=== PATIENT | male | born 1960 | race Two or more races ===

== ENCOUNTER 2016-12-19 06:34 | Day surgery (SDC) | payer OTHER ==
--- NOTE | 2016-12-16 19:54 | HP ---
HISTORY AND PHYSICAL: DATE OF ADMISSION/SURGERY: 12/19/16 The patient is scheduled for surgery on 12/19/16. HISTORY OF PRESENT ILLNESS: The patient was referred to Dr. Mars back in June 2016 by his primary physician, Dr. Chalo Abernathy, for the evaluation of possible thrombophlebitis of the left leg. The patient is a 56-year-old gentleman who has had a history of recurrent superficial thrombophlebitis over the past several years. He originally is from [facility] and was diagnosed there and over the years had recurrent episodes of thrombophlebitis of the left leg, had previously underwent an ultrasound of the left leg and had been on heparin for the treatment of thrombophlebitis. He denies any family history of vein problems, thrombophlebitis, DVT, or pulmonary embolism. He denies any prior history of any trauma to the lower leg. When he presented in June, he gives a history of previously being on heparin on episodes when he has had thrombophlebitis and he was currently on aspirin, but was having GI upset associated with this at the time of his visit on 07/24/16. Other past medical history is significant for hypertension. At the time of his evaluation, he was found to have thrombophlebitis of the left leg. Duplex scan revealed clot throughout the greater saphenous vein. Over the fall, this left leg was treated with Lovenox and monitored with ultrasounds by Dr. Mars. On September 25, the greater saphenous vein on the left leg was found to be clear of clots and he was changed over from Lovenox to Plavix 75 mg a day. Also, in part of his workup, he was found to have heterozygous factor V Leiden which was positive and this was reported to the patient as well. When doing his Duplex scan, the right leg was scanned as well. This revealed the deep system to be normal on the right leg. He had reflux disease involving the right greater saphenous vein. The patient has edema of both lower legs. He has some hyperpigmentation noted on the left leg, lower extremity, the posterior aspect of the calf. This area measured 9 x 5 cm in size. The acute redness that previously had been present in the left leg has resolved. There is 2+ edema bilaterally. The right leg has no evidence of phlebitis. On physical exam, pulses in the femoral region and distally to the dorsalis pedis are positive and equal bilaterally. Impression, the patient has bilateral venous reflux disease involving both legs. The left leg was acutely treated with anticoagulation because of the thrombophlebitis, which was found to be acute back in June. Before proceeding with surgery on the left, we would rather place more time before that procedure, but the patient at this time will undergo endoluminal closure of the right greater saphenous vein to be performed by Dr. Mars, [facility] PAST MEDICAL HISTORY: Significant for hypertension for medication he has been placed on. He also has a history of psoriasis which involves his hands. He has cramping that he complains of in both lower legs and has a history of gastroesophageal reflux and this is aggravated when taking aspirin. PAST SURGICAL HISTORY: None. CURRENT MEDICATIONS: 1. He takes vitamin B12. 2. He is on vitamin D3 daily. 3. The patient takes losartan potassium 50 mg 1 tablet daily. 4. Plavix 75 mg q.p.m. This is discontinued today on 12/16/16. 5. P.r.n., he takes fluocinonide 0.05% to the affected areas for his psoriasis. ALLERGIES: The patient has no known drug allergies. He does have an issue with aspirin intolerance due to his gastric esophageal reflux. SOCIAL HISTORY: He is . He is originally from the [facility]. He is a student at [employer] and he is also employed and works at [employer] as a cook. He is , has 2 children that are grown. No history of cigarette use. No history of alcohol abuse. He has lived here for 4 years in the [place]. REVIEW OF SYSTEMS: The patient gives a history of GI upset, gastrointestinal reflux which has bothered when taking aspirin products. He also gives a history of a fatty liver, occasionally having discomfort when eating fatty foods in right upper quadrant. He states that he had an ultrasound in the [facility] and was found to have a fatty liver. This is 2 years ago, was not told that he had a problem with his gallbladder. Hematologic: He recently tested positive for Factor V Leiden as part of his hematologic workup and will require followup with a train reservation clerk postoperatively. Cardiac villatoro, no history of cardiac disease, [place], or angina, but does have a history of hypertension, which he is on medication for and is followed. PHYSICAL EXAMINATION VITAL SIGNS: Reveal that his height is 5 feet 10 inches, weight is 256 pounds. His blood pressure is 150/91, pulse is 75 and regular. HEENT: Within normal limits. NECK: Supple. There is no JVD or carotid bruits. His thyroid is felt to be normal. LUNGS: Clear throughout. There are no wheezes or rhonchi. HEART: Revealed regular rhythm without a murmur heard. ABDOMEN: Somewhat large. It is soft and nontender. There are no masses. There was no tenderness or signs of hernia. EXTREMITIES: Reveal full range of motion without limitation. His lower legs revealed edema bilaterally. He has 2+ edema on the left, 1+ on the right. He has some hyperpigmentation and discoloration of the skin on the left lower leg, posterior calf, ankle region. On the right leg, there is no hyperpigmentation. Pulses in the femoral region distally, dorsalis pedis are 2+ and equal bilaterally. NEUROLOGIC: Nonfocal and grossly intact. IMPRESSION: Venous scan performed by Dr. Mars reveals bilateral venous reflux disease involving the greater saphenous vein of the left leg. The patient has resolved a thrombophlebitis of the greater saphenous vein on the left and is being treated with Plavix. He will need surgery at a later date on the left. The right leg revealed venous reflux disease involving the right greater saphenous vein. The patient is here at this time for endoluminal closure of the right greater saphenous vein to be performed by Dr. Mars. The patient was told to discontinue the Plavix a week prior to surgery. He is stopping Plavix on 12/16/16 in preparation for upcoming surgery. The patient has borderline hypertension, for which he is on medications. A prescription for compression stockings to wear after surgery were given and we will discuss pain management and pain medication. I will prescribe this for upcoming surgery as well. ALBAN RUIZ [id number]/[facility] #: [id number] DANIKA
[~2016-12-19 06:34] MED LIST: Buffered Lidocaine 1% SYR 3ML* 3 ML/SYR SYRINGE INTRADERM ONE
[2016-12-19] MEDS ORDERED: ceFAZolin 2 GM PREMIX (*) 2 GM/50 ML BAG IVPB ONE (06:43)
[2016-12-19] MEDS ORDERED: Lidocaine 2% PF* 10 ML AMP ONE (07:11)
[2016-12-19] MEDS ORDERED: Polidocanol 1% 20 MG/2 ML AMP IV ONE (07:11)
[2016-12-19] MEDS ORDERED: Lidocaine 2% PF * 5 ML VIAL ONE (07:11)
[2016-12-19] MEDS ORDERED: Sodium Bicarbonate 8.4% SYR* 10 ML SYRINGE ONE (07:12)
[2016-12-19] MEDS ORDERED: Lidocaine 1% MPF* 2 ML VIAL ONE (07:12)
[2016-12-19] MEDS ORDERED: EPINEPHrine AMP 1 MG/ML ONE (07:12)
[2016-12-19] MEDS ORDERED: Enoxaparin(*) 30 MG/0.3 ML SYR ONE (07:42)
[2016-12-19] MEDS ORDERED: Midazolam* 1 MG/ML 2 ML VIAL (2 MG) ONE (07:51)
[2016-12-19] MEDS ORDERED: fentaNYL* 50 MCG/ML 2 ML VIAL (100 MCG VIAL) ONE (08:06)
[2016-12-19] MEDS ORDERED: Ondansetron INJ* 2 MG/ML VIAL IV PRN (08:19)
[2016-12-19] MEDS ORDERED: HYDROcodone/ACETAMIN 5-325 MG* 1 TAB PO PRN (08:19)
[2016-12-19] MEDS ORDERED: DiMENhydriNATE IV* 50 MG/ML VIAL IV PUSH PRN (08:19)
[2016-12-19] MEDS ORDERED: Acetaminophen TAB* 325 MG PO PRN (08:19)
--- NOTE | 2016-12-19 08:49 | OP ---
DATE OF OPERATION: 12/19/16 - [facility] DATE OF : 64 SURGEON: Jaycob Mars MD ANESTHESIOLOGIST: Dr. Best ANESTHESIA: Local plus MAC. PRE-OP DIAGNOSIS: Superficial venous reflux disease of the right lower extremity secondary to an incompetent right greater saphenous vein. POST-OP DIAGNOSIS: Superficial venous reflux disease of the right lower extremity secondary to an incompetent right greater saphenous vein. OPERATIVE PROCEDURE: Radiofrequency closure of the right greater saphenous vein. ESTIMATED BLOOD LOSS: None. DESCRIPTION OF PROCEDURE: The patient was taken to the procedure room. He underwent marking of the proper extremity to be done. He was then placed in the supine position. He was then prepped and draped in the usual sterile fashion. The usual time-out time took place. After this was done, under sedation, lidocaine 1% was used to infiltrate on the medial aspect of the right thigh above the knee. Percutaneous cannulation of the greater saphenous vein was done under ultrasound guidance. Once the small needle and wire were in place, the needle was then exchanged for a 7-Vincentian 11-cm long introducer sheath that was advanced over the wire. We then proceeded to advance a _0.018__ glidewire and, because of a kink in the vein, and after this, over the wire the FastTrack radiofrequency catheter was advanced. After this, the glidewire was removed and the tip of the radiofrequency catheter was positioned 2 cm below the saphenofemoral junction. We then proceeded to infiltrate tumescent local anesthesia around the greater saphenous vein in the catheter from the entrance point up to the saphenofemoral junction. After this was completed, the patient was again confirmed to have the catheter at 2 cm from the saphenofemoral junction below it. After this was done, we then proceeded to activate the radiofrequency unit. The first 7 cm were cycled twice, and then a single cycle thereafter, delivering a total of six cycles through the greater saphenous vein. After this was completed, there was evidence of closure of the treated vein by thickening of the wall; however, the common femoral vein appeared to be compressible without any abnormalities. After this was done, the small incision was closed with 5-0 Prolene and Steri-Strips. A light pressure dressing was applied to the right lower extremity. The patient tolerated the procedure well. She was then taken to the recovery room. [id number]/[facility] #: [id number] DANIKA
[2016-12-19 09:25] VITALS: BP 122/65
== END 2016-12-19 09:28 | disposition home or self-care (01) ==
LOC: OREAST 06:34
PROVIDERS: ATTEND Surgery
DX: I83.891 Varicose veins of right lower extremity with other complications (principal); I10 Essential (primary) hypertension; Z87.891 Personal history of nicotine dependence; D68.51 Activated protein C resistance; Z79.01 Long term (current) use of anticoagulants; E66.01 Morbid (severe) obesity due to excess calories; Z68.37 Body mass index [BMI] 37.0-37.9, adult
CPT/HCPCS: J0171; J0690; J1650; J2001; J2250; J3010